=== PATIENT | female | born 1995 | race American Indian/Alaskan Native ===

== ENCOUNTER 2018-10-09 09:02 | Emergency (ER) | payer BC, OTHER ==
[2018-10-09] MEDS ORDERED: NACL 0.9% 1000 ML 1,000 ML IV ONE ×2 (09:05→10:48)
--- NOTE | 2018-10-09 09:10 | Emergency Department Report ---
ED Syncope HPI - General Stated Complaint: UNRESPONSIVE Time Seen by Provider: 10/09/18 09:05 Source: patient Exam Limitations: no limitations - History of Present Illness Initial Comments: Patient is a 23-year-old female that presents emergency room with complaints of syncopal episode 1. Patient had a brief loss of consciousness. Patient's syncope witnessed by her coworkers. The patient's syncopal episode happened at work. Patient denies headache. Patient denies any physical complaints. Patien t states she felt dizzy and weak prior to syncope. Patient denies chest pain shortness of breath. Timing/Prior Episodes: no prior history, single episode today Precipitating Factors: Positive: lightheadedness Context: standing Loss of Consciousness: brief (seconds) Current Symptoms: lightheadedness, weakness - Related Data Allergies/Adverse Reactions: Allergies No Known Allergies Allergy (Verified 10/09/18 09:15) ED Review of Systems ROS: Stated complaint: UNRESPONSIVE Other details as noted in HPI Constitutional: weakness. denies: chills, fever Eyes: denies: eye pain, eye discharge, vision change ENT: denies: ear pain, throat pain Respiratory: denies: cough, shortness of breath, wheezing Cardiovascular: denies: chest pain, palpitations Endocrine: no symptoms reported Gastrointestinal: denies: abdominal pain, nausea, diarrhea Genitourinary: denies: urgency, dysuria, discharge Musculoskeletal: denies: back pain, joint swelling, arthralgia Skin: denies: rash, lesions Neurological: weakness. denies: headache, paresthesias Psychiatric: denies: anxiety, depression Hematological/Lymphatic: denies: easy bleeding, easy bruising ED Past Medical Hx - Past Medical History Previous Medical History?: No - Surgical History Past Surgical History?: No - Family History Family history: no significant - Social History Smoking Status: Never Smoker Substance Use Type: None ED Physical Exam - General Limitations: No Limitations General appearance: alert, in no apparent distress - Head Head exam: Present: atraumatic, normocephalic - Eye Eye exam: Present: normal appearance - ENT ENT exam: Present: mucous membranes moist - Neck Neck exam: Present: normal inspection - Respiratory Respiratory exam: Present: normal lung sounds bilaterally. Absent: respiratory distress - Cardiovascular Cardiovascular Exam: Present: regular rate, normal rhythm. Absent: systolic murmur, diastolic murmur, rubs, gallop - GI/Abdominal GI/Abdominal exam: Present: soft, normal bowel sounds - Extremities Exam Extremities exam: Present: normal inspection - Back Exam Back exam: Present: normal inspection - Neurological Exam Neurological exam: Present: alert, oriented X3 - Psychiatric Psychiatric exam: Present: normal affect, normal mood - Skin Skin exam: Present: warm, dry, intact, normal color. Absent: rash ED Course Vital Signs 10/09/18 10/09/18 10/09/18 09:08 09:16 09:18 Temperature 98.0 F Pulse Rate 96 H 86 Respiratory 15 16 Rate Blood Pressure 86/52 Blood Pressure 86/52 [Left] O2 Sat by Pulse 97 99 Oximetry - Reevaluation(s) Reevaluation #1: Patient is more awake after getting some fluids. 10/09/18 09:29 Patient states she is feeling back to normal. Discussed all results with patient. Patient is stable for discharge. Patient will be discharged home. Patient given discharge instructions. Patient voiced understanding of discharge instructions 10/09/18 11:55 ED Medical Decision Making - Lab Data Result diagrams: 10/09/18 09:12 10/09/18 09:12 - EKG Data -: EKG Interpreted by [facility] EKG shows normal: sinus rhythm, axis, intervals, QRS complexes, ST-T waves Rate: normal - Radiology Data Radiology results: report reviewed CT head without contrast Clinical history: Syncope, weakness. FINDINGS: No previous exams are available for comparison. The brain demonstrate appropriate attenuation. There is mild prominence of the cerebral sulci for a patient this age. However, the ventricular system is within normal limits in size and configuration. There is no CT evidence of acute intracranial hemorrhage or significant mass effect. The visualized paranasal sinuses are clear. All CT scans at this location are performed using the CT dose reduction for [email or web address] by means of automated exposure control. IMPRESSION: There is no CT evidence of acute intracranial process. - Medical Decision Making Patient is a 23-year-old female that presents emergency with complaints of syncopal episode 1. Patient's syncope secondary to dehydration and lack of by mouth intake. Patient given fluids and all her symptoms resolved. Patient ambulatory and tolerated by mouth intake in the ER. Patient stable for discharge. Patient discharged home. Patient given discharge instructions. Patient voiced understanding of discharge instructions. Patient's labs unremarkable. Patient's CT the head negative. - Differential Diagnosis syncope. Dehydration. Vasovagal Critical care attestation.: If time is entered above; I have spent that time in minutes in the direct care of this critically ill patient, excluding procedure time. ED Disposition Clinical Impression: Dehydration Syncope Qualifiers: Syncope type: unspecified Qualified Code(s): R55 - Syncope and collapse Disposition: DC-01 TO HOME OR SELFCARE Is pt being admited?: No Does the pt Need Aspirin: No Condition: Stable Instructions: Dehydration (ED), Syncope (ED) Additional Instructions: Patient to follow up with primary care in 2-3 days. Patient to return to ER for condition worsens. Patient to take Tylenol or ibuprofen when necessary for pain. Patient to increase water. Patient to rest. Patient to avoid working until cleared by her primary care. Referrals: HILARY BENITEZ MD [Primary Care Provider] - 2-3 Days Time of Disposition: 11:57
[2018-10-09 09:16] VITALS: BP 86/52
[2018-10-09 09:24] LABS: Basophils # (Auto) 0.1 K/mm3 (0.0-0.1); Basophils % (Auto) 0.9 % (0.0-1.8); Eosinophils % (Auto) 0.4 % (0.0-4.3); Hematocrit 33.5 % (30.3-42.9); Hemoglobin 10.8 gm/dl (10.1-14.3); Lymphocytes # (Auto) 1.4 K/mm3 (1.2-5.4); Lymphocytes % (Auto) 17.2 % (13.4-35.0); Mean Corpuscular HGB Conc 32 % (30-34); Mean Corpuscular Volume 76 fl (79-97); Monocytes # (Auto) 0.7 K/mm3 (0.0-0.8); Monocytes % (Auto) 8.6 % (0.0-7.3); Platelet Count 235 K/mm3 (140-440); Red Blood Count 4.39 M/mm3 (3.65-5.03); Red Cell Distribution Width 15.3 % (13.2-15.2)
[2018-10-09 09:51] LABS: Alanine Aminotransferase 10 units/L (7-56); Albumin 4.2 g/dL (3.9-5); BUN/Creatinine Ratio 11; Blood Urea Nitrogen 8 mg/dL (7-17); Calcium 9.2 mg/dL (8.4-10.2); Hemolysis Index 61
[2018-10-09 09:59] LABS: Creatine Kinase MB < 1.0 ng/mL (0.0-4.0)
--- NOTE | 2018-10-09 11:46 | Cat Scan Report ---
CT head without contrast Clinical history: Syncope, weakness. FINDINGS: No previous exams are available for comparison. The brain demonstrate appropriate attenuati on. There is mild prominence of the cerebral sulci for a patient this age. However, the ventricular s ystem is within normal limits in size and configuration. There is no CT evidence of acute intracrania l hemorrhage or significant mass effect. The visualized paranasal sinuses are clear. All CT scans at this location are performed using the CT dose reduction for [employer] by means of automated exposure cont rol. IMPRESSION: There is no CT evidence of acute intracranial process. Signer Name: Collin Fernandez MD Signed: 10/09/2018 11:42 AM Workstation Name: [id number]
== END 2018-10-09 12:55 | disposition home or self-care (01) ==
LOC: EDBD → ED 09:02
DX: E86.0 Dehydration (principal); R55 Syncope and collapse
CPT/HCPCS: 36415; 70450; 80053; 82550; 82553; 84703; 85025; 93005; 93010; 96360; 96361; 99284; J7030; 82962